=== PATIENT | male | born 1975 | race Caucasian/White ===

== ENCOUNTER 2016-09-15 13:36 | Emergency (ER) | payer OTHER ==
[~2016-09-15] VITALS: Ht 177.8 cm; Wt 160.0 kg
[~2016-09-15 13:36] MED LIST: ALLO100T PO; COLC1TAB7 PO; DOXY100T PO; GEOD20CA OR; NEXI20CA PO; PRED20 PO; SULF1TAB47 PO; TRAZ50TA4 PO
[2016-09-15 14:30] VITALS: BP 142/66; PULSE 71; RESP 14; TEMP 98.1; O2SAT 100
[2016-09-15] MEDS ORDERED: SODIUM CHLOR 0.9% 1000 ML INJ 1,000 ML IV ONE ×2 (14:30)
[2016-09-15 14:40] VITALS: BP 142/66; PULSE 71; RESP 18; TEMP 97.1; O2SAT 100
[2016-09-15 14:57] LABS: AUTOMATED NEUTROPHIL # 7.8 TH/MM3 (1.8-7.7); BASOPHIL % 0.2 % (0.0-2.0); EOSINOPHIL # 0.1 TH/MM3 (0-0.4); EOSINOPHIL % 0.8 % (0.0-4.0); HEMATOCRIT 35.3 % (39.0-51.0); HEMO FLAGS DIFF FINAL; LYMPH % 17.4 % (9.0-44.0); LYMPHOCYTE # 1.8 TH/MM3 (1.0-4.8); MEAN CELL VOLUME 85.5 FL (80.0-100.0); MEAN CORPUSCULAR HEMOGLOBIN 28.7 PG (27.0-34.0); MEAN CORPUSCULAR HGB CONC 33.6 % (32.0-36.0); MONO % 7.1 % (0.0-8.0); NEUT % 74.5 % (16.0-70.0); PLATELET COUNT 269 TH/MM3 (150-450); RED BLOOD COUNT 4.13 MIL/MM3 (4.50-5.90); RED CELL DISTRIBUTION WIDTH 13.5 % (11.6-17.2); WHITE BLOOD COUNT 10.5 TH/MM3 (4.0-11.0)
[2016-09-15 15:30] LABS: ALT (GPT) 34 U/L (12-78); ANION GAP 8 MEQ/L (5-15); AST (GOT) 29 U/L (15-37); BLOOD UREA NITROGEN 38 MG/DL (7-18); CHLORIDE 103 MEQ/L (98-107); GLOMERULAR FILTRATION RATE 31 ML/MIN (>89); POTASSIUM 4.8 MEQ/L (3.5-5.1); SODIUM (NA) 136 MEQ/L (136-145)
[2016-09-15] MEDS ORDERED: ACETAMINOPHEN/HYDROcodone 325 MG/5 MG TAB PO ONE (15:30)
[2016-09-15 15:32] LABS: ALKALINE PHOSPHATASE 36 U/L (45-117); CREATINE KINASE 566 U/L (39-308); TOTAL BILIRUBIN ADULT 0.6 MG/DL (0.2-1.0)
--- NOTE | 2016-09-15 16:10 | PD ---
HPI Chief Complaint: Abdominal Pain Time Seen by Provider: 14:26 Travel History International Travel<30 days: No Contact w/Intl Traveler<30days: No Traveled to known affect area: No History of Present Illness HPI Is a 41-year-old man who presents to the emergency department complaining of spasms in his legs and back and chest while working outside in the heat. He felt a little unwell yesterday. Today he tried to hydrate but still had worsening symptoms. He's had similar symptoms one time in the past associated with dehydration and kidney injury. He feels better now. He received 2 L of fluid with EMS. He otherwise had been feeling generally well. His a history diabetes, gout, hypertension, high triglycerides. No other recent illness or injury. No other complaints. History Past Medical History Narrative Medical Diabetes Gout GERD Hypertension High triglycerides Tetanus Vaccination: < 5 Years Influenza Vaccination: Yes Social History Alcohol Use: No Tobacco Use: No Allergies-Medications (Allergen,Severity, Reaction): Coded Allergies: MRI PRECAUTION (Verified Allergy, Severe, 09/15/16) Burchinal (Verified Adverse Reaction, Unknown, 09/15/16) mother says he cannot take Family member had a reaction to med. Reported Meds & Prescriptions Reported Meds & Active Scripts Active Review of Systems Except as stated in HPI: all other systems reviewed are Neg Physical Exam Narrative GENERAL: Well-appearing 41-year-old man, no acute distress. SKIN: Focused skin assessment warm/dry. HEAD: Atraumatic. Normocephalic. EYES: Pupils equal and round. No scleral icterus. No injection or drainage. ENT: No nasal bleeding or discharge. Mucous membranes pink and moist. NECK: Trachea midline. No JVD. CARDIOVASCULAR: Regular rate and rhythm. No murmur appreciated. RESPIRATORY: No accessory muscle use. Clear to auscultation. Breath sounds equal bilaterally. GASTROINTESTINAL: Abdomen soft, non-tender, nondistended. Hepatic and splenic margins not palpable. MUSCULOSKELETAL: No obvious deformities. No clubbing. No cyanosis. No edema. NEUROLOGICAL: Awake and alert. No obvious cranial nerve deficits. Motor grossly within normal limits. Normal speech. PSYCHIATRIC: Appropriate mood and affect; insight and judgment normal. Data Data Last Documented VS Vital Signs Date Time Temp Pulse Resp B/P Pulse Ox O2 Delivery O2 Flow Rate FiO2 09/15/16 14:50 18 09/15/16 14:40 97.1 71 142/66 100 09/15/16 14:30 Room Air Orders Complete Blood Count With Diff (09/15/16 14:26) Comprehensive Metabolic Panel (09/15/16 14:26) Creatine Kinase (Cpk) (09/15/16 14:26) Iv Access Insert/Monitor (09/15/16 14:26) Sodium Chlor 0.9% 1000 Ml Inj (Ns 1000 M (09/15/16 14:30) Sodium Chlor 0.9% 1000 Ml Inj (Ns 1000 M (09/15/16 14:30) Acetamin-Hydrocod 325-5 Mg ([place] 5-325 (09/15/16 15:30) CKMB (09/15/16 14:35) CKMB% (09/15/16 14:35) Labs Laboratory Tests Test 09/15/16 14:35 White Blood Count 10.5 TH/MM3 Red Blood Count 4.13 MIL/MM3 Hemoglobin 11.9 GM/DL Hematocrit 35.3 % Mean Corpuscular Volume 85.5 FL Mean Corpuscular Hemoglobin 28.7 PG Mean Corpuscular Hemoglobin 33.6 % Concent Red Cell Distribution Width 13.5 % Platelet Count 269 TH/MM3 Mean Platelet Volume 9.0 FL Neutrophils (%) (Auto) 74.5 % Lymphocytes (%) (Auto) 17.4 % Monocytes (%) (Auto) 7.1 % Eosinophils (%) (Auto) 0.8 % Basophils (%) (Auto) 0.2 % Neutrophils # (Auto) 7.8 TH/MM3 Lymphocytes # (Auto) 1.8 TH/MM3 Monocytes # (Auto) 0.7 TH/MM3 Eosinophils # (Auto) 0.1 TH/MM3 Basophils # (Auto) 0.0 TH/MM3 CBC Comment DIFF FINAL Differential Comment Sodium Level 136 MEQ/L Potassium Level 4.8 MEQ/L Chloride Level 103 MEQ/L Carbon Dioxide Level 25.0 MEQ/L Anion Gap 8 MEQ/L Blood Urea Nitrogen 38 MG/DL Creatinine 2.32 MG/DL Estimat Glomerular Filtration 31 ML/MIN Rate Random Glucose 133 MG/DL Calcium Level 9.4 MG/DL Total Bilirubin 0.6 MG/DL Aspartate Amino Transf 29 U/L (AST/SGOT) Alanine Aminotransferase 34 U/L (ALT/SGPT) Alkaline Phosphatase 36 U/L Total Creatine Kinase 566 U/L Total Protein 7.0 GM/DL Albumin 4.5 GM/DL [facility] Medical Decision Making Medical Screen Exam Complete: Yes Emergency Medical Condition: Yes Interpretation(s) LABS: CBC remarkable for mild anemia. CMP remarkable for elevated BUN and creatinine. Total CK 566. Differential Diagnosis Dehydration, rhabdomyolysis, kidney injury, electrolyte abnormality, other Narrative Course Medical decision making This a 41-year-old man who presents emergency department dehydration. He is some acute kidney injury on his labs. He does not have rhabdomyolysis. He looks otherwise well. We'll recommend a couple days off from work, fluid hydration, repeat labs. His appointment with his primary doctor on . Diagnosis Primary Impression: Dehydration Additional Impression: Acute kidney injury Departure Forms: Tests/Procedures, Work Release Enter return to work date: September 18, 2016 Additional Instructions: Drink plenty of fluids stay well-hydrated. Follow-up with her primary doctor in the next 2-4 days. Return to the emergency department for any new or worsening symptoms. Disposition: 01 DISCHARGE HOME Condition: Stable Eliot Cornelius MD Sep 15, 2016 16:10
[2016-09-15 16:26] LABS: CKMB 3.9 NG/ML (0.5-3.6)
[2016-09-15] MEDS ORDERED: COLC1CAP3 PO (16:49)
[2016-09-15] MEDS ORDERED: LAMO25 PO (16:49)
[2016-09-15] MEDS ORDERED: CANA100T PO (16:49)
[2016-09-15] MEDS ORDERED: FENO160T PO (16:49)
[2016-09-15] MEDS ORDERED: LANTUS2P SQ (16:49)
[2016-09-15] MEDS ORDERED: BACT2OIN2 TOPICAL (16:49)
[2016-09-15] MEDS ORDERED: LISI2.5T3 PO (16:49)
[2016-09-15] MEDS ORDERED: GABA300C5 PO (16:49)
[2016-09-15] MEDS ORDERED: ALLO100T PO (16:49)
[2016-09-15] MEDS ORDERED: METF500T PO (16:49)
[2016-09-15] MEDS ORDERED: SERT25TA83 PO (16:49)
[2016-09-15] MEDS ORDERED: OMEP40CA2 PO (16:49)
[2016-09-15] MEDS ORDERED: LIPI20TA PO (16:49)
[2016-09-15] MEDS ORDERED: CART180C PO (16:49)
[2016-09-15] MEDS ORDERED: LAMO100 PO (16:49)
[2016-09-15 16:58] VITALS: BP 148/65
== END 2016-09-15 17:03 | disposition home or self-care (01) ==
LOC: NEPE 13:36
DX: E86.0 Dehydration (principal); N17.9 Acute kidney failure, unspecified; E78.1 Pure hyperglyceridemia; I10 Essential (primary) hypertension; K21.9 Gastro-esophageal reflux disease without esophagitis; M10.9 Gout, unspecified; E11.9 Type 2 diabetes mellitus without complications
CPT/HCPCS: 80053; 82550; 82552; 85025; 96360; 96361; 99283; J7030